=== PATIENT | female | born 1990 | race Caucasian/White ===

== ENCOUNTER 2018-07-05 20:04 | Inpatient (IN) | payer OTHER ==
[2018-07-05 20:54] LABS: APPEARANCE,URINE CLEAR; BILIRUBIN,URINE NEGATIVE (NEGATIVE); COLOR,URINE COLORLESS; GLUCOSE, URINE NEGATIVE (NEGATIVE); KETONES,URINE NEGATIVE (NEGATIVE); LEUKOCYTE ESTERASE,URINE NEGATIVE (NEGATIVE); NITRITE,URINE NEGATIVE (NEGATIVE); PROTEIN,URINE NEGATIVE (NEGATIVE); URINE SPECIFIC GRAVITY 1.005; UROBILINOGEN,URINE NEGATIVE mg/dL (<2.0)
[2018-07-05 20:55] LABS: ABSOLUTE BASOPHILS # (AUTO) 0.1 10^3/uL (0.0-0.2); ABSOLUTE EOSINOPHILS # (AUTO) 0.1 10^3/uL (0.0-0.6); ABSOLUTE LYMPHOCYTES (AUTO) 2.4 10^3/uL (0.5-4.7); ABSOLUTE NEUT (AUTO) 7.5 10^3/uL (1.7-8.2); BASOPHILS % (AUTO) 0.5 % (0-2); EOSINOPHILS % (AUTO) 1.1 % (0-6); HEMOGLOBIN 11.1 g/dL (12.0-15.5); LYMPHOCYTES % (AUTO) 21.6 % (13-45); MEAN CORPUSCULAR HEMOGLOBIN 28.2 pg (27.0-33.4); MEAN CORPUSCULAR HGB CONC 33.6 g/dL (32.0-36.0); MEAN CORPUSCULAR VOLUME 84 fl (80-97); MONOCYTES % (AUTO) 9.2 % (3-13); PLATELET COUNT 288 10^3/uL (150-450); RED BLOOD COUNT 3.93 10^6/uL (3.72-5.28); RED CELL DISTRIBUTION WIDTH 15.1 % (11.5-14.0); SEGMENTED NEUTROPHILS % (AUTO) 67.6 % (42-78); TOTAL CELLS COUNTED % (AUTO) 100 %; WHITE BLOOD COUNT 11.1 10^3/uL (4.0-10.5)
--- NOTE | 2018-07-05 20:59 | Admission Physical ---
Datetime Report Generated by CPN: 07/05/2018 20:58 CURRENT ADMISSION Chief Complaint: Scheduled Induction of Labor Indication for Induction: Post Dates Admit Impression : Postterm, Intrauterine Admit Plan: Admit to Unit; Initiate Labor Induction Protocol ALLERGIES Medication Allergies: Yes Medication Allergies: Sulfa (Sulfonamide Antibiotics)/MN (07/05/2018) Latex: No Latex Allergies OBSTETRICAL HISTORY EDC: 06/28/2018 00:00 : 2 Para: 0 Gestational Diabetes: No Rh Sensitization: No Incompetent Cervix: No BUFFY: No Infertility: No ART Treatment: No Uterine Anomaly: No IUGR: No Hx Previous C/S: No Macrosomia: No Hx Loss/Stillborn: No PIH: No Hx : No Placenta Previa/Abruption: No Depression/PP Depression: No PTL/PROM: No Post Hemorrhage: No Obstetrical History Comments: 2008 EAB G2 - current SEE RECORDS Alcohol: No Marijuana : No Cocaine: No Other Illicit Drugs: No Cigarettes: Never Smoker. [id number] MEDICAL HISTORY Diabetes: No Blood Transfusion: No Pulmonary Disease (Asthma, TB): No Breast Disease: No Hypertension: No Financial Planner Surgery: No Heart Disease: No Hosp/Surgery: No Autoimmune Disorder: No Anesthetic Complications: No Kidney Disease: No Abnormal Pap Smear: No Neuro/Epilepsy: No Psychiatric Disorders: No Other Medical Diseases: No Hepatitis/Liver Disease: No Significant Family History: No Varicosities/Phlebitis: No Trauma/Violence : No Thyroid Dysfunction: No INFECTIOUS HISTORY Gonorrhea: No Genital Herpes: No Chlamydia: No Tuberculosis: No Syphilis: No Hepatitis: No HIV/AIDS Exposure: No Rash or Viral Illness: No HPV: No PHYSICAL EXAM General: Normal HEENT: Normal Neurologic: Normal Thyroid: Normal Heart: Normal Lungs: Normal Breast: Deferred Back: Normal Abdomen: Normal Genitourinary Exam: Normal Extremities: Normal DTRs: Normal Pelvic Type: Adequate Vital Signs: Reviewed VAGINAL EXAM Dilatation: 0 Effacement: 0 Station: -3 MEMBRANES Pooling: Negative Membranes: Intact FETUS A EGA: 41.0 Monitoring: External US FHR- Baseline: 120 Variability: Moderate 6-25bpm FHR Category: Category I Presentation: Vertex Admit Comment: admit for cervadil PLANS FOR LABOR AND DELIVERY Labor and Delivery: None Pain Management: Epidural Feeding Preference: Breast Benefit of Breast Feed Discussed: Yes Circumcision: Yes INFORMED CONSENT Signature: with User ID: [email or web address]
[2018-07-05 21:09] LABS: URINE AMPHETAMINES SCREEN NEGATIVE; URINE BARBITURATES SCREEN NEGATIVE; URINE BENZODIAZEPINES SCREEN NEGATIVE; URINE COCAINE SCREEN NEGATIVE; URINE MARIJUANA (THC) SCREEN NEGATIVE; URINE METHADONE SCREEN NEGATIVE; URINE PHENCYCLIDINE SCREEN NEGATIVE
[2018-07-05] MEDS: RINGERS SOLUTION,LACTATED 1,000 ML IV PRN (21:49)
[2018-07-05] MEDS ORDERED: DINOPROSTONE 10 MG VAGINAL INSERT.SR PV PRN (22:02)
[2018-07-05] MEDS ORDERED: RINGERS SOLUTION,LACTATED 1,000 ML IV PRN (22:04)
[2018-07-05] MEDS ORDERED: DINOPROSTONE 10 MG VAGINAL INSERT.SR ONE (22:17)
[2018-07-06] MEDS: RINGERS SOLUTION,LACTATED 1,000 ML IV PRN (04:39)
[2018-07-06] MEDS ORDERED: NALBUPHINE HCL INJ 10 MG/1 ML AMPULE ONE (12:45)
[2018-07-06] MEDS ORDERED: LIDOCAINE 1% INJ-PF (10 MG/ML) 30 ML SDV ONE (12:45)
[2018-07-06] MEDS ORDERED: MISOPROSTOL 0.2 MG TABLET ONE (12:45)
[2018-07-06] MEDS ORDERED: OXYTOCIN/NORMAL SALINE 20 UNIT/1,000 ML RTUINJ ONE (12:45)
[2018-07-06] MEDS ORDERED: PROMETHAZINE HCL INJ 25 MG/1 ML VIAL ONE (12:46)
[2018-07-06] MEDS ORDERED: OXYTOCIN/NORMAL SALINE 20 UNIT/1,000 ML RTUINJ IV PRN (13:24)
[2018-07-06] MEDS ORDERED: NALBUPHINE HCL INJ 10 MG/1 ML AMPULE INJ ONE (13:30)
--- NOTE | 2018-07-06 20:23 | L&D Progress Notes ---
PROGRESS NOTES Datetime Report Generated by CPN: 07/06/2018 20:23 PROGRESS NOTE Impression: Normal Progression of Labor Procedures: Artificial ROM Plan: Continue Present Management Plan Other: epidural Vital Signs : Reviewed; Within Normal Limits Comment: AROM at approx 2000--blood -tinged fluid; now having variable decels; position changes employed. O2 on. Will call for epidural. VAGINAL EXAM Dilatation: 5 Dilatation: 0 Effacement: 80 Effacement: 0 Station: -3 Station: -3 Contractions: q 2 LAST VAGINAL EXAM-NURSING Dilitation: 5.0 Dilitation: 4.0 Dilitation: 3.0 Dilitation: FT Dilitation: FT Effacement: 90 Effacement: 80 Effacement: 80 Effacement: 50 Effacement: 50 Station: -2 Station: -2 Station: -3 Station: -3 Station: -3 Contractions: Pt denies feeling ctx's MEMBRANES Pooling: Negative Membranes: Ruptured Membranes: Intact FETUS A FHR - Baseline: 140s Monitoring: External US Variability: Moderate 6-25bpm Decelerations: Variable FHR Category: Category I : 41.1 : 41.0 Presentation: Vertex SIGNATURE SIGNATURE: [id number];[id number] SIGNATURE: [id number] Signature: with User ID: [email or web address]
[2018-07-06] MEDS ORDERED: EPHEDRINE SULFATE INJ 50 MG/1 ML AMPULE ONE (21:36)
[2018-07-06] MEDS ORDERED: FENTANYL/BUPIVACAINE/NS/PF 300 MCG/150 ML RTUINJ EPI ONE (21:36)
[2018-07-06] MEDS ORDERED: BUPIVACAINE HCL 0.5 % INJ/PF 30 ML SDV ONE (21:36)
[2018-07-07] MEDS ORDERED: ACETAMINOPHEN 325 MG TABLET ONE (00:47)
[2018-07-07] MEDS ORDERED: CITRIC ACID/SODIUM CITRATE ORAL SOLN 15 ML UDCUP ONE (02:51)
[2018-07-07] MEDS ORDERED: CEFAZOLIN 2 GM/D5W RTU 2 GM/50 ML RTUPB IV ONE (02:51)
--- NOTE | 2018-07-07 02:58 | L&D Progress Notes ---
PROGRESS NOTES Datetime Report Generated by CPN: 07/07/2018 02:58 PROGRESS NOTE Impression: Arrest of Dilatation/Descent Procedures- Other: surveillance Plan: Deliver- Section Informed Consent Obtained: Section Delivery Vital Signs : Reviewed; Within Normal Limits Comment: AROM at 1999 with cervix at 4-5 cm. Persistant variable decels afterwards. Position changes employed. The variables became very shallow. Pt received epidural and is very comfortable. The pit was reduced from 20 mu to 2 mu. Still char regulary with minimal cervical change after 7 hours. Caput present adn most likely a nuchal cord also. I then explained to the pt that the best route of delivery is to perform a C/S. The risks and benefits of the prodedure was discussed with the pt with the risks including but not limited to bleeding, infection, damage to adjacent organs such as the bowel, bladder, ureters, nerves and vessels. The benefits include and end to labor and delivery of a healthy . Pt is agreeable to the plan. VAGINAL EXAM Dilatation: 5-6 Effacement: 100 Station: -3 Contractions: q 2-4 Dilitation: 4.0 Dilitation: 5.0 Dilitation: 5.0 Effacement: 90 Effacement: 90 Effacement: 80 Station: -1 Station: -1 Station: -2 FETUS A FHR - Baseline: 140s Monitoring: External US Variability: Moderate 6-25bpm Accelerations: 10X10 Decelerations: Variable FHR Category: Category II : 41.2 FETUS C SIGNATURE: [id number];[id number] Signature: with User ID: [email or web address]
[2018-07-07] MEDS ORDERED: KETOROLAC TROMETHAMINE INJ/PF 30 MG/1 ML SDV ONE (03:02)
[2018-07-07] MEDS ORDERED: EPHEDRINE SULFATE INJ 50 MG/1 ML AMPULE ONE (03:02)
[2018-07-07] MEDS ORDERED: BUPIVACAINE HCL/DEX-WATER/PF 15 MG/2 ML AMPULE ONE (03:02)
[2018-07-07] MEDS ORDERED: ONDANSETRON HCL INJ/PF 4 MG/2 ML SDV ONE ×2 (03:02→04:33)
[2018-07-07] MEDS ORDERED: MIDAZOLAM 2 MG/2 ML INJ ONE (03:02)
[2018-07-07] MEDS ORDERED: ACETAMINOPHEN 1,000 MG/100 ML RTUPB IV ONE (03:02)
[2018-07-07] MEDS ORDERED: FENTANYL CITRATE INJ/PF 100 MCG/2 ML AMPUL ONE ×2 (03:02→04:41)
[2018-07-07] MEDS ORDERED: OXYTOCIN 10 UNIT/ML VIAL ONE (03:02)
[2018-07-07] MEDS ORDERED: OXYTOCIN/NORMAL SALINE 20 UNIT/1,000 ML RTUINJ ONE ×2 (03:02→04:51)
[2018-07-07] MEDS ORDERED: METHYLERGONOVINE MALEATE INJ/PF 0.2 MG/1 ML AMPULE ONE (03:03)
[2018-07-07] MEDS ORDERED: LIDOCAINE 2% INJ-PF (20 MG/ML) 10 ML AMPUL ONE (03:10)
[2018-07-07] MEDS ORDERED: DIPHENHYDRAMINE HCL 50 MG/ML VIAL IV PRN (03:53)
[2018-07-07] MEDS ORDERED: OXYCODONE-ACETAMINOPHEN 5-325 MG TABLET PO PRN ×3 (03:53→06:22)
[2018-07-07] MEDS ORDERED: MEPERIDINE HCL/PF INJ 25 MG/1 ML DISP.SYRIN IV PRN (03:53)
[2018-07-07] MEDS ORDERED: PROMETHAZINE HCL INJ 25 MG/1 ML VIAL IV PRN ×3 (03:53→06:22)
[2018-07-07] MEDS ORDERED: FENTANYL CITRATE INJ/PF 100 MCG/2 ML AMPUL IV PRN ×3 (03:53)
[2018-07-07] MEDS ORDERED: MORPHINE SULFATE 10 MG/ML INJ IV PRN (03:53)
--- NOTE | 2018-07-07 04:38 | PDOC DELIVERY SUMMARY ---
Delivery Summary - Maternal Hx : I REMIGIO: 06/28/18 Gestational Age: 41.2 Ruptured Membranes: AROM Time of Rupture: 20:00 Fluids: Clear - Delivery Presentation: Vertex Heart Rate Monitoring: Externally Uterine Contraction Monitoring: External Pattern: Variable Decels Support Person Present: Yes Location: OR : Primary Placenta: Abnormal Placenta Description: Meconium-stained Delivery of Placenta Date: 07/07/18 Estimated Blood Loss: 1000 ml - Medications Type of Anesthesia:: Epidural - Intrapartum Medications Intrapartum Medications: Methergine 0.2 mg IM - Delivery Personnel MD: IRISH WONG
--- NOTE | 2018-07-07 04:44 | Operative Report ---
Operative Report DATE OF SURGERY: 07/07/18 PREOPERATIVE DIAGNOSIS: 1. Intrauterine at 41-2/7 weeks. 2. Post dates. 3. Failure to progress. 4. GBS negative. 5. Rh+. 6. Rubella immune POSTOPERATIVE DIAGNOSIS: Same OPERATION: Primary low transverse section SURGEON: IRISH CERON ANESTHESIA: Epidural TISSUE REMOVED OR ALTERED: Placenta COMPLICATIONS: None ESTIMATED BLOOD LOSS: 1000 ml INTRAOPERATIVE FINDINGS: Male in the cephalic position with nuchal cord x2; thick meconium; Gram stain placenta; normal uterus, tubes and ovaries PROCEDURE: The patient was taken to the operating room where epidural anesthesia was found to be adequate. She was then prepped and draped in the normal sterile fashion and placed in the dorsal supine position with a leftward tilt. A Pfannenstiel skin incision was then made and carried through to the underlying layers of the fascia with the scalpel. The fascia was incised in the midline and the incision extended laterally with the Shin scissors. The superior aspect of the fascial incision was then grasped with Jing clamps elevated and the underlying rectus muscles dissected off both bluntly and sharply. Attention was then turned to the inferior aspect of the fascial incision which in a similar fashion was grasped, tented up with Jing clamps, and the rectus muscles dissected off both bluntly and sharply. The rectus muscles were then in the midline and the peritoneum at the amount identified and entered [bluntly]. The peritoneal incision was then extended superiorly and inferiorly with good visualization of the bladder. The bladder blade was inserted and the vesicouterine peritoneum identified grasped with Montserratian pickups and entered sharply with the Metzenbaum scissors. This incision was then extended laterally with the Metzenbaum scissors and a bladder flap created digitally. The bladder blade was then reinserted and the lower uterine segment incised in a transverse fashion with the scalpel. The uterine incision was then extended bluntly and with the bandage scissors. Thick meconium was immediately noted once incision was made. The bladder blade was removed and the infant's head was delivered from cephalic presentation atraumatically with the assistance of a vacuum. The nose and mouth were suctioned and the cord doubly clamped and cut. The infant was handed off to waiting pediatricians. The placenta was then delivered manually, which was meconium stained. The uterus was cleared of all clots and debris. There was large bleeding secondary to over distended uterus. Methergine 0.2 mg IM was given at that time. The uterine incision was then repaired with 0 Vicryl in a running locked fashion. 0 -Chromic was used to obtain hemostasis via imbrication of the initial layer. The bladder flap was then repaired with 3-0 Vicryl in a running fashion. The uterus was returned to the patient's abdomen and Interceed was placed overlying the uterine incision, as well as a piece placed vertically on the anterior surface of the uterus, to prevent adhesions. The gutters were cleared of all clots and debris. All operative sites were noted to be hemostatic. The fascia was reapproximated with 0 Vicryl in a running fashion from each lateral edge to the midline. The subcutaneous fat layer was then closed in an interrupted fashion with 3-0 vicryl. The skin was closed with 4-0 Monocryl in a running, subcuticular fashion. The patient tolerated the procedure well. Sponge, lap, needle and instrument counts are correct x 2. 2 g of Ancef were given prior to skin incision. The patient was taken to the recovery area awake and in stable condition.
[2018-07-07] MEDS ORDERED: MORPHINE SULFATE 10 MG/ML INJ ONE (04:48)
[2018-07-07] MEDS ORDERED: DIPH/PERTUSS(ACELL)/TETANUS VAC/PF 0.5 ML SYR (>=10YO) IM PRN (06:22)
[2018-07-07] MEDS ORDERED: NORMAL SALINE 1000 ML 1,000 ML IV PRN (06:22)
[2018-07-07] MEDS ORDERED: MEASLES,MUMPS&RUBELLA VACC/PF 0.5 ML VIAL SUBCUT PRN (06:22)
[2018-07-07] MEDS ORDERED: HYDROMORPHONE HCL INJ/PF 2 MG/ML AMPULE IV PRN (06:22)
[2018-07-07] MEDS ORDERED: SIMETHICONE 80 MG TAB.CHEW PO PRN (06:22)
[2018-07-07 06:44] LABS: ABSOLUTE LYMPHOCYTES (AUTO) 1.2 10^3/uL (0.5-4.7); ABSOLUTE MONOCYTES (AUTO) 2.2 10^3/uL (0.1-1.4); ABSOLUTE NEUT (AUTO) 16.1 10^3/uL (1.7-8.2); BASOPHILS % (AUTO) 0.2 % (0-2); HEMATOCRIT 25.3 % (36.0-47.0); LYMPHOCYTES % (AUTO) 6.2 % (13-45); MEAN CORPUSCULAR HEMOGLOBIN 27.8 pg (27.0-33.4); MEAN CORPUSCULAR HGB CONC 33.2 g/dL (32.0-36.0); MEAN CORPUSCULAR VOLUME 84 fl (80-97); MONOCYTES % (AUTO) 11.4 % (3-13); PLATELET COUNT 240 10^3/uL (150-450); RED BLOOD COUNT 3.02 10^6/uL (3.72-5.28); RED CELL DISTRIBUTION WIDTH 15.2 % (11.5-14.0); SEGMENTED NEUTROPHILS % (AUTO) 82.2 % (42-78); TOTAL CELLS COUNTED % (AUTO) 100 %; WHITE BLOOD COUNT 19.5 10^3/uL (4.0-10.5)
[2018-07-07 06:45] LABS: HEMOGLOBIN 8.4 g/dL (12.0-15.5)
[2018-07-07] MEDS: DOCUSATE SODIUM 100 MG CAPSULE PO SCH ×2 (09:38→17:34)
[2018-07-07] MEDS: PRENATAL VITAMIN W DHA CAPSULE PO SCH (09:38)
--- NOTE | 2018-07-07 10:49 | PDOC PROGRESS REPORT ---
Subjective-OB Progress Note for:: 07/07/18 Physical Exam (OB) Vital Signs: Temp Pulse Resp BP Pulse Ox 97.5 F 96 15 118/81 98 07/07/18 09:45 07/07/18 09:45 07/07/18 09:45 07/07/18 09:45 07/07/18 09:45 Intake & Output 07/06/18 07/07/18 07/08/18 06:59 06:59 06:59 Intake Total 854 Balance 854 Weight 87.9 kg - Lochia Lochia Amount: Scant < 10 ml Lochia Color: Rubra/Red - Abdomen Description: Tender, Round Hernia Present: No Bowel Sounds: Normoactive Flatus Presence: Present Stool: No Fundal Description: Firm Fundal Height: u/u - u/2 Objective-Diagnostic Laboratory: 07/07/18 06:10 07/07/18 06:10 WBC 19.5 H RBC 3.02 L Hgb 8.4 L D Hct 25.3 L MCV 84 MCH 27.8 MCHC 33.2 RDW 15.2 H Plt Count 240 Seg Neutrophils % 82.2 H Lymphocytes % 6.2 L Monocytes % 11.4 Eosinophils % 0.0 Basophils % 0.2 Absolute Neutrophils 16.1 H Absolute Lymphocytes 1.2 Absolute Monocytes 2.2 H Absolute Eosinophils 0.0 Absolute Basophils 0.0
[2018-07-07] MEDS: IBUPROFEN 800 MG TABLET PO SCH ×2 (12:13→17:33)
[2018-07-07] MEDS: KETOROLAC TROMETHAMINE INJ/PF 30 MG/1 ML SDV IV SCH ×2 (13:23→21:46)
[2018-07-07] MEDS: OXYCODONE-ACETAMINOPHEN 5-325 MG TABLET PO PRN (20:04)
[2018-07-07] MEDS: ACETAMINOPHEN 325 MG TABLET PO PRN (20:28)
[2018-07-08] MEDS: IBUPROFEN 800 MG TABLET PO SCH ×3 (02:50→14:49)
[2018-07-08] MEDS: KETOROLAC TROMETHAMINE INJ/PF 30 MG/1 ML SDV IV SCH (05:11)
[2018-07-08 06:08] LABS: ABSOLUTE BASOPHILS # (AUTO) 0.1 10^3/uL (0.0-0.2); ABSOLUTE EOSINOPHILS # (AUTO) 0.1 10^3/uL (0.0-0.6); ABSOLUTE LYMPHOCYTES (AUTO) 2.5 10^3/uL (0.5-4.7); ABSOLUTE MONOCYTES (AUTO) 1.9 10^3/uL (0.1-1.4); ABSOLUTE NEUT (AUTO) 10.9 10^3/uL (1.7-8.2); BASOPHILS % (AUTO) 0.4 % (0-2); EOSINOPHILS % (AUTO) 0.9 % (0-6); HEMATOCRIT 18.8 % (36.0-47.0); LYMPHOCYTES % (AUTO) 16.2 % (13-45); MEAN CORPUSCULAR HEMOGLOBIN 28.3 pg (27.0-33.4); MEAN CORPUSCULAR HGB CONC 33.7 g/dL (32.0-36.0); MEAN CORPUSCULAR VOLUME 84 fl (80-97); MONOCYTES % (AUTO) 12.2 % (3-13); PLATELET COUNT 218 10^3/uL (150-450); RED BLOOD COUNT 2.25 10^6/uL (3.72-5.28); RED CELL DISTRIBUTION WIDTH 15.4 % (11.5-14.0); SEGMENTED NEUTROPHILS % (AUTO) 70.3 % (42-78); TOTAL CELLS COUNTED % (AUTO) 100 %; WHITE BLOOD COUNT 15.5 10^3/uL (4.0-10.5)
[2018-07-08 06:33] LABS: HEMOGLOBIN 6.4 g/dL (12.0-15.5)
[2018-07-08] MEDS ORDERED: DIPHENHYDRAMINE HCL 25 MG CAPSULE ONE (08:40)
[2018-07-08] MEDS: ACETAMINOPHEN 325 MG TABLET PO PRN (08:42)
[2018-07-08] MEDS ORDERED: ACETAMINOPHEN 325 MG TABLET PO PRN (08:48)
[2018-07-08] MEDS ORDERED: DIPHENHYDRAMINE HCL 50 MG CAPSULE PO PRN (08:49)
[2018-07-08] MEDS: DOCUSATE SODIUM 100 MG CAPSULE PO SCH ×2 (10:31→18:08)
[2018-07-08] MEDS: PRENATAL VITAMIN W DHA CAPSULE PO SCH (10:31)
--- NOTE | 2018-07-08 10:58 | PDOC PROGRESS REPORT ---
Subjective-OB Progress Note for:: 07/08/18 Physical Exam (OB) Vital Signs: Temp Pulse Resp BP Pulse Ox 98.0 F 125 H 18 116/64 97 07/08/18 10:29 07/08/18 10:29 07/08/18 10:29 07/08/18 10:29 07/08/18 10:29 Intake & Output 07/07/18 07/08/18 07/09/18 06:59 06:59 06:59 Intake Total 1530 0 Output Total 2450 Balance -920 0 - General General Appearance: Appears well Note:: Receiving blood at this time. - PIH/Pre-Eclampsia Clonus: Negative Headache: Absent Epigastric Pain: No Visual Changes: No - Dressing Removed: Yes Incision: Dressing Closure Type: Sutures - Lochia Lochia Amount: Small 10-25 ml Lochia Color: Rubra/Red - Abdomen Description: Soft, Round Hernia Present: No Bowel Sounds: Normoactive Flatus Presence: Present Stool: No Fundal Description: Firm Fundal Height: u/u - u/2 Objective-Diagnostic Laboratory: 07/08/18 05:49 07/05/18 07/08/18 20:40 05:49 WBC 15.5 H RBC 2.25 L Hgb 6.4 L Hct 18.8 L MCV 84 MCH 28.3 MCHC 33.7 RDW 15.4 H Plt Count 218 Seg Neutrophils % 70.3 Lymphocytes % 16.2 Monocytes % 12.2 Eosinophils % 0.9 Basophils % 0.4 Absolute Neutrophils 10.9 H Absolute Lymphocytes 2.5 Absolute Monocytes 1.9 H Absolute Eosinophils 0.1 Absolute Basophils 0.1 Blood Type O POSITIVE Antibody Screen NEGATIVE
[2018-07-08] MEDS ORDERED: IBUPROFEN 800 MG TABLET ONE (14:47)
[2018-07-08] MEDS: OXYCODONE-ACETAMINOPHEN 5-325 MG TABLET PO PRN (14:49)
[2018-07-08 20:47] LABS: MEAN CORPUSCULAR HEMOGLOBIN 28.7 pg (27.0-33.4); MEAN CORPUSCULAR HGB CONC 33.7 g/dL (32.0-36.0); MEAN CORPUSCULAR VOLUME 85 fl (80-97); PLATELET COUNT 277 10^3/uL (150-450); RED BLOOD COUNT 3.18 10^6/uL (3.72-5.28); WHITE BLOOD COUNT 18.2 10^3/uL (4.0-10.5)
[2018-07-08 20:52] LABS: HEMOGLOBIN 9.1 g/dL (12.0-15.5)
[2018-07-09] MEDS: OXYCODONE-ACETAMINOPHEN 5-325 MG TABLET PO PRN (01:37)
[2018-07-09] MEDS: IBUPROFEN 800 MG TABLET PO SCH ×4 (06:42→08:03)
[2018-07-09 07:01] LABS: HEMATOCRIT 23.7 % (36.0-47.0); MEAN CORPUSCULAR HEMOGLOBIN 28.7 pg (27.0-33.4); MEAN CORPUSCULAR HGB CONC 33.7 g/dL (32.0-36.0); MEAN CORPUSCULAR VOLUME 85 fl (80-97); PLATELET COUNT 230 10^3/uL (150-450); RED BLOOD COUNT 2.79 10^6/uL (3.72-5.28); RED CELL DISTRIBUTION WIDTH 15.1 % (11.5-14.0); WHITE BLOOD COUNT 13.4 10^3/uL (4.0-10.5)
[2018-07-09 09:15] VITALS: BP 125/75
[2018-07-09] MEDS: PRENATAL VITAMIN W DHA CAPSULE PO SCH (10:20)
[2018-07-09] MEDS: DOCUSATE SODIUM 100 MG CAPSULE PO SCH (10:20)
--- NOTE | 2018-07-09 10:43 | PDOC PROGRESS REPORT ---
Subjective-OB Progress Note for:: 07/09/18 Subjective: Ready to go home. Feeling better since blood transfusion yesterday. Physical Exam (OB) Vital Signs: Temp Pulse Resp BP Pulse Ox 97.6 F 117 H 16 125/75 100 07/09/18 08:00 07/09/18 08:00 07/09/18 08:00 07/09/18 08:00 07/09/18 08:00 Intake & Output 07/08/18 07/09/18 07/10/18 06:59 06:59 06:59 Intake Total 1530 3350 240 Output Total 2450 Balance -920 3350 240 - PIH/Pre-Eclampsia DTR's: 1 + Clonus: Negative Headache: Absent Epigastric Pain: No Visual Changes: No - Dressing Removed: No Incision: Dressing Closure Type: op site - Lochia Lochia Amount: Scant < 10 ml Lochia Color: Rubra/Red - Abdomen Description: Tender, Soft, Round Hernia Present: No Bowel Sounds: Normoactive Flatus Presence: Present Stool: No Fundal Description: Firm, Midline Fundal Height: u/u - u/2 Objective-Diagnostic Laboratory: 07/09/18 06:39 07/05/18 07/08/18 07/09/18 20:40 20:36 06:39 WBC 18.2 H 13.4 H RBC 3.18 L 2.79 L Hgb 9.1 L D 8.0 L Hct 27.0 L 23.7 L MCV 85 85 MCH 28.7 28.7 MCHC 33.7 33.7 RDW 15.0 H 15.1 H Plt Count 277 230 Blood Type O POSITIVE Antibody Screen NEGATIVE
--- NOTE | 2018-07-09 10:53 | PDOC DISCHARGE SUMMARY ---
Final Diagnosis Discharge Date: 07/09/18 - Final Diagnosis (1) Acute blood loss anemia Is this a current diagnosis for this admission?: Yes (2) Delivery by emergency caesarean section Is this a current diagnosis for this admission?: Yes (3) Failed induction of labor, delivered Is this a current diagnosis for this admission?: Yes (4) Failure to progress in labor Is this a current diagnosis for this admission?: Yes (5) Is this a current diagnosis for this admission?: Yes Discharge Data - Discharge Medication Prescriptions: Oxycodone HCl/Acetaminophen [Percocet 5-325 mg Tablet] 1 tab PO Q4HP PRN #20 tablet PRN Reason: Docusate Sodium [Colace 100 mg Capsule] 100 mg PO BID #30 capsule Ferrous Sulfate 325 mg PO BID #60 tablet. Ibuprofen [Motrin 800 mg Tablet] 800 mg PO Q6 #30 tablet Home Medications: Pnv No.95/Ferrous Fum/Folic AC [ Vitamin Tablet] 1 each PO DAILY Docusate Sodium [Colace 100 mg Capsule] 100 mg PO BID #30 capsule 07/09/18 Ferrous Sulfate 325 mg PO BID #60 tablet. 07/09/18 Ibuprofen [Motrin 800 mg Tablet] 800 mg PO Q6 #30 tablet 07/09/18 Oxycodone HCl/Acetaminophen [Percocet 5-325 mg Tablet] 1 tab PO Q4HP PRN #20 tablet 07/09/18 Gestational Age: 41.2 wks Reason(s) for Admission: Induction of Labor Procedures: Ultrasound Intrapartum Procedure(s): : Low Cervical, Transverse - [place] Data Baby 1 Male at 1 minute: 8 at 5 minutes: 9 Weight: 3.685 kg Home with Mother: Yes Complications: No - Diagnosis Test Laboratory: Temp Pulse Resp BP Pulse Ox 97.6 F 117 H 16 125/75 100 07/09/18 08:00 07/09/18 08:00 07/09/18 08:00 07/09/18 08:00 07/09/18 08:00 07/05/18 07/05/18 07/07/18 20:30 20:40 06:10 RBC 3.93 3.02 L Hgb 11.1 L 8.4 L D Hct 33.0 L 25.3 L Urine Opiates Screen NEGATIVE 07/08/18 07/08/18 07/09/18 05:49 20:36 06:39 RBC 2.25 L 3.18 L 2.79 L Hgb 6.4 L 9.1 L D 8.0 L Hct 18.8 L 27.0 L 23.7 L Urine Opiates Screen - Discharge information/Instructions Discharge Activity: Activity As Tolerated, Balance Activity w/Rest, No Lifting Over 10 Pounds, No Lifting/Push/Pulling, Pelvic Rest, Slowly Increase Activity, No tub bath Discharge Diet: Regular Disposition: HOME, SELF-CARE Follow up with: [facility] in: 1, Weeks
== END 2018-07-09 15:55 | disposition home or self-care (01) | DRG 787 ==
LOC: LR 20:04 → 2S 07-07 06:31
PROVIDERS: ADMIT Obstetrics & Gynecology; ATTEND Obstetrics & Gynecology
PROC: 4A1HXCZ Monitoring of Products of Conception, Cardiac Rate, External Approach (ICD-10-PCS; 2018-07-05)
PROC: 3E0P7VZ Introduction of Hormone into Female Reproductive, Via Natural or Artificial Opening (ICD-10-PCS; 2018-07-05)
PROC: 3E033VJ Introduction of Other Hormone into Peripheral Vein, Percutaneous Approach (ICD-10-PCS; 2018-07-06)
PROC: 10D00Z1 Extraction of Products of Conception, Low, Open Approach (ICD-10-PCS; principal; 2018-07-07)
PROC: 30233P1 Transfusion of Nonautologous Frozen Red Cells into Peripheral Vein, Percutaneous Approach (ICD-10-PCS; 2018-07-08)
DX: O62.1 Secondary uterine inertia (principal); D62 Acute posthemorrhagic anemia; O76 Abnormality in fetal heart rate and rhythm complicating labor and delivery; O48.0 Post-term pregnancy; Z3A.41 41 weeks gestation of pregnancy; Z37.0 Single live birth; O69.81X0 Labor and delivery complicated by cord around neck, without compression, not applicable or unspecified; O77.0 Labor and delivery complicated by meconium in amniotic fluid; O99.02 Anemia complicating childbirth; Z88.2 Allergy status to sulfonamides
CPT/HCPCS: 1961; 36415; 36430; 80307; 81005; 85025; 85027; 86592; 86850; 86900; 86901; 86920; 88307; 94760; 94799; C1758; J0131; J0690; J1885; J2210; J2250; J2270; J2300; J2405; J2550; J2590; J3010; J3490; P9016